=== PATIENT | male | born 2000 | race Two or more races ===

== ENCOUNTER 2023-12-25 17:36 | Emergency (ER) | payer OTHER ==
[~2023-12-25] VITALS: Ht 180.3 cm; Wt 113.4 kg
[2023-12-25 17:55] VITALS: BP 104/57; PULSE 74; RESP 18; TEMP 97.9; O2SAT 98
[2023-12-25] MEDS ORDERED: LORA-1415 PO (18:54)
[2023-12-25 19:01] VITALS: BP 104/57; PULSE 74; RESP 18; TEMP 97.9; O2SAT 98
== END 2023-12-25 19:01 | disposition home or self-care (01) ==
LOC: MED 17:36
DX: J06.9 Acute upper respiratory infection, unspecified (principal); R03.0 Elevated blood-pressure reading, without diagnosis of hypertension; Z79.899 Other long term (current) drug therapy
CPT/HCPCS: 99282